=== PATIENT | female | born 1985 | race Caucasian/White ===

== ENCOUNTER 2017-06-02 23:06 | Emergency (ER) | payer OTHER ==
[~2017-06-02] VITALS: Ht 152.4 cm; Wt 44.5 kg
[2017-06-02] MEDS ORDERED: KETOROLAC TROMETHAMINE 60 MG/2 ML VIAL IM ONE (23:30)
[2017-06-03 00:25] VITALS: BP 121/72
== END 2017-06-03 00:27 | disposition home or self-care (01) ==
LOC: FSED 23:06
DX: S00.83XA Contusion of other part of head, initial encounter (principal); M54.2 Cervicalgia; W17.89XA Other fall from one level to another, initial encounter; Y93.45 Activity, cheerleading; Y92.310 Basketball court as the place of occurrence of the external cause
CPT/HCPCS: 70450; 72125; 81003; 96372; 99283; J1885